=== PATIENT | female | born 1965 | race Caucasian/White ===

== ENCOUNTER 2019-04-24 11:48 | Emergency (ER) | payer BC, SELFPAY ==
[2019-04-24 12:02] VITALS: BP 145/89; PULSE 96; RESP 18; TEMP 36.6; O2SAT 100
--- NOTE | 2019-04-24 12:02 | ED.GENADULT ---
HPI - General Adult General Chief complaint: Upper Respiratory Infection Stated complaint: Cold Flu symptoms Time Seen by Provider: 04/24/19 12:09 Source: patient and RN notes reviewed Mode of arrival: ambulatory Limitations: no limitations History of Present Illness HPI narrative: This patient has had a 6 to 7-day history of a cough productive of green phlegm without chest pain or shortness of breath. She thinks that she may have had a fever but did not actually take her the monitor and take the temperature. She has not had any ear pain. She had no drainage from the ears. She has had a small amount of purulent rhinorrhea with postnasal drip sensation. She has had no sore throat. She used Mucinex and NyQuil for the symptoms, but the NyQuil does not help with the cough and the cough is begun to disturb her sleep at night. She has had no chest pain no shortness of breath. She does smoke 1/2 to 1 pack cigarettes per day for many years. She has no history of asthma. She has had no nausea, no vomiting, no diarrhea. She has had no hematuria, no dysuria, no pyuria. She is had no rashes. She has had no known exposure to anyone with strep throat, mono, influenza, bronchitis, pneumonia that she is aware of. Related Data Home Medications Medication Instructions Recorded Confirmed lisinopril-hydrochlorothiazide 1 tablet PO DAILY 04/24/19 04/24/19 metoprolol tartrate 50 mg PO DAILY 04/24/19 04/24/19 Allergies Allergy/AdvReac Type Severity Reaction Status Date / Time No Known Allergies Allergy Unverified 11/17/16 10:43 Review of Systems Review of Systems: Narrative: CONSTITUTIONAL: Denies fever, chills, or sweats. Noncontributory except as pertains to the past medical history and history of present illness. EYES: Denies visual changes, redness, or discharge. ENT: Denies rhinorrhea, congestion, sore throat, or otalgia. CARDIOVASCULAR: Denies chest pain, palpitations, or edema. RESPIRATORY: Denies cough or dyspnea. GASTROINTESTINAL: Denies abdominal pain, nausea, vomiting, or diarrhea. GENITOURINARY: Denies dysuria or hematuria. SKIN: Denies rash or itching. MUSCULOSKELETAL: Denies back pain, joint pain, or myalgia. NEUROLOGIC: Denies headache, numbness, or weakness. PSYCHIATRIC: Denies anxiety or depression. PMFSH Comments At time of signature, I have reviewed and agree with nursing past medical, surgical, social, and family history.Please see nursing chart for further information. There is no relevant family history pertinent to the presenting complaint. Exam Narrative: Exam Narrative: GENERAL: Well-appearing, well-nourished, and in no acute distress. HEAD: Normocephalic, atraumatic. There is no palpation tenderness over the frontal, maxillary, mastoid sinus areas. EYES: PERRLA and EOMI. EARS: TM's clear bilaterally and the canals are clear. NOSE: Nares have edematous nasal mucosa with purulent rhinorrhea postnasal drip. THROAT:Mucous membranes moist.Oropharynx normal without erythema or exudates. NECK: Supple. No adenopathy of the neck, supraclavicular, axillary, or inguinal areas. RESPIRATORY: No respiratory distress. Airway patent. Respirations non-labored. The lungs have rhonchi in the upper and midlung [place], but not the bases. There are no wheezes, no rales, no retractions, and no use accessory muscle respirations. Patient is not cyanotic and not dyspneic. Pulse ox on room air is 100% current temperature is 36.6 ?C. HEART: Regular rate and rhythm. No murmur heard. Normal peripheral pulses. ABDOMEN: Soft, nontender, nondistended, normal active bowel sounds.No masses. No rebound or guarding, No organomegaly. No CVA pain. No pain McBurney's point. Patient has a negative Owens sign negative Rovsing sign. There are no pulsatile masses no audible bruits. EXTREMITIES: No clubbing/cyanosis/ edema. Normal strength & range of motion. SKIN: Warm, dry.Normal color. No rash or skin lesions. Patient is well-nourished well-hydrated and
== END 2019-04-24 12:16 | disposition home or self-care (01) ==
PROVIDERS: Emergency Provider Family Medicine; PCP Emergency Medicine
DX: J40 Bronchitis, not specified as acute or chronic (principal); J01.10 Acute frontal sinusitis, unspecified; I10 Essential (primary) hypertension
CPT/HCPCS: 99213; G0463

== ENCOUNTER 2019-11-22 11:39 | Emergency (ER) | payer BC, SELFPAY ==
[2019-11-22 11:45] VITALS: BP 175/101; PULSE 104; RESP 20; TEMP 36.6; O2SAT 99
--- NOTE | 2019-11-22 11:57 | ED.GENADULT ---
HPI - General Adult General Chief complaint: Eye Problems Stated complaint: sinus eye and an eye stye Time Seen by Provider: 11/22/19 11:57 Source: patient and RN notes reviewed Mode of arrival: ambulatory Limitations: no limitations History of Present Illness HPI narrative: 54-year-old female presents with complaints of upper respiratory infection, facial congestion, facial pain, and intermittent headaches (not the worst of her life) for the past 4 days. No facial swelling. Denies cough. Nasal congestion and rhinorrhea. No chest pain or shortness of breath. Exacerbating factors consist of cigarette smoke exposure. Denies fever or chills. Remains active. LMP postmenopausal. The patient reports she have not been diagnosed with COVID-19. The patient reports she is not waiting for the results of a COVID-19 lab test. The patient reports she do not have fever, chills, weakness, or fatigue. The patient reports she do not have a new or worsening cough or shortness of breath. Denies chest pain. The patient reports she do not have any loss of taste, sore throat, nausea, vomiting, abdominal pain, and diarrhea. Tolerating po intake well. Denies recent traveling. Denies concerns for COVID-19 or exposures been home with limited outdoor exposure except for essential household needs and return home. At this time, patient is not suspected of having COVID-19. Complains of swelling and redness to the edge of the inner of RT eyelid for the past 3 days. Believes it is a style. No redness to eye. No drainage. No blurred vision, double vision, sensation of foreign body, or pain of eye with movement. Does not wear glasses or contact lenses. Complaints of needing blood pressure medications for the past 2 days. Lisinopril 20mg/HCTZ12.5mg daily and Metoprolol tartrate 25mg twice a day. Denies fatigue, numbness or tingling in the extremities, dizziness, headache, blurred vision, or other vision disturbance. Some parts of this dictation were generated by voice recognition software and may contain typographical and/or grammatical inaccuracies. Related Data Home Medications Medication Instructions Recorded Confirmed lisinopril-hydrochlorothiazide 1 tablet PO DAILY 04/24/19 11/22/19 metoprolol tartrate 50 mg PO DAILY 04/24/19 11/22/19 Allergies Allergy/AdvReac Type Severity Reaction Status Date / Time No Known Allergies Allergy Verified 11/22/19 11:51 Review of Systems Review of Systems: Narrative: CONSTITUTIONAL: Denies fever, chills, sweats. EYES: Denies visual changes, redness, discharge. Complains of RT lower eyelid stye. ENT: Complains of rhinorrhea, congestion, facial pressure. Denies sore throat, otalgia. CARDIOVASCULAR: Denies chest pain, palpitations, edema. Complains of needing blood pressure medications. RESPIRATORY: Denies dyspnea, wheezing, cough. GASTROINTESTINAL: Denies abdominal pain, nausea, vomiting, diarrhea. GENITOURINARY: Denies dysuria, hematuria, abnormal discharge. SKIN: Denies rash or itching. MUSCULOSKELETAL: Denies acute back pain, joint pain, or myalgia. NEUROLOGIC: Denies numbness or focal weakness. Complains of intermittent MABRY. PSYCHIATRIC: Denies anxiety or depression. All systems reviewed & are unremarkable except as noted in HPI and below. [facility] Past Medical History Medical History (Updated 11/22/19 @ 13:45 by TOVA Hair) Anxiety Hypertension Post-menopause , ectopic Surgical History Surgical History (Updated 11/22/19 @ 12:31 by TOVA Hair) No significant past surgical history Family History Family History (Updated 11/22/19 @ 12:32 by TOVA Hair) Father Hypertension Diabetes mellitus Mother Alive and well Social History Social History (Updated 11/22/19 @ 12:35 by TOVA Hair) Smoking packs per day: 1 Smoking cigarettes per day: 20.0 Years smoked: 25 Smoking pack-years: 25.00 Smoking status: Current ever
== END 2019-11-22 12:29 | disposition home or self-care (01) ==
PROVIDERS: Emergency Provider Nurse Practitioner Family
DX: J01.90 Acute sinusitis, unspecified (principal); H00.022 Hordeolum internum right lower eyelid; I10 Essential (primary) hypertension; Z20.828 Contact with and (suspected) exposure to other viral communicable diseases; F17.210 Nicotine dependence, cigarettes, uncomplicated
CPT/HCPCS: 99213; G0463